=== PATIENT | female | born 1960 | race Two or more races ===

== ENCOUNTER 2018-05-16 16:18 | Emergency (ER) | payer OTHER ==
[~2018-05-16] VITALS: Ht 157.5 cm; Wt 69.4 kg
[2018-05-16] MEDS ORDERED: HALDOL5 MG/1 ML (17:34)
[2018-05-16] MEDS ORDERED: LANTUS SOL100 UNIT/1 (17:34)
== END 2018-05-16 22:24 | disposition home or self-care (01) ==
LOC: ER 16:18
DX: M94.0 Chondrocostal junction syndrome [Tietze] (principal); E11.9 Type 2 diabetes mellitus without complications